=== PATIENT | female | born 1965 | race Caucasian/White ===

== ENCOUNTER 2016-10-27 08:29 | Emergency (ER) | payer MEDICAID ==
[~2016-10-27] VITALS: Ht 157.5 cm; Wt 74.8 kg
[2016-10-27 08:29] VITALS: BP 163/101
== END 2016-10-27 08:49 | disposition home or self-care (01) ==
LOC: ER 08:34
DX: L84 Corns and callosities (principal); T63.441A Toxic effect of venom of bees, accidental (unintentional), initial encounter; F32.9 Major depressive disorder, single episode, unspecified; X58.XXXA Exposure to other specified factors, initial encounter
CPT/HCPCS: A4606; Z7502; Z7610